=== PATIENT | female | born 1945 | race Caucasian/White ===

== ENCOUNTER → 2016-12-21 | Outpatient (CLI) | payer OTHER, MEDICARE ==
[~2016-12-21] MED LIST: AMBIEN10 MG PO; ASPIR-LOW81 MG PO; AUGMENTIN TAB875 MG PO; LOVASTATIN20 MG PO; PHENERGAN 25 MG25 M1 PO; ROBITUSSIN DM473 ML PO; TENORMIN 25 MG25 MG PO; TYLENOL 325MG325 MG PO
[2016-12-21 09:01] LABS: HEMOGLOBIN 13.5 gm/dl (12.3-15.3); RED BLOOD COUNT 4.73 M/UL (4.00-5.10); WHITE BLOOD COUNT 4.1 K/UL (4.5-11.0)
== END ==
LOC: US 08:36
PROVIDERS: Otolaryngology
DX: E04.2 Nontoxic multinodular goiter (principal); D44.0 Neoplasm of uncertain behavior of thyroid gland
CPT/HCPCS: 10022; 36415; 76536; 85027; 85610; 85730

== ENCOUNTER → 2020-08-14 | Outpatient (CLI) | payer MEDICARE, OTHER | LOC: KOH-I 08-10 15:00 | DX: R22.41 Localized swelling, mass and lump, right lower limb (principal) | CPT/HCPCS: 76881 ==

== ENCOUNTER → 2021-02-03 | Outpatient (CLI) | payer MEDICARE | LOC: MAMO 07:58 | DX: Z12.31 Encounter for screening mammogram for malignant neoplasm of breast (principal) | CPT/HCPCS: 77063; 77067 ==

== ENCOUNTER → 2021-06-03 | Outpatient (CLI) | payer MEDICARE | LOC: LAB 10:25 | DX: M25.50 Pain in unspecified joint (principal); R76.8 Other specified abnormal immunological findings in serum; D89.89 Other specified disorders involving the immune mechanism, not elsewhere classified; D64.9 Anemia, unspecified; R53.83 Other fatigue; M25.519 Pain in unspecified shoulder; E55.9 Vitamin D deficiency, unspecified | CPT/HCPCS: 36415; 82728; 83520 ==

== ENCOUNTER → 2021-09-17 | Outpatient (CLI) | payer MEDICARE ==
[2021-09-17 11:06] LABS: HEMOGLOBIN 12.2 gm/dl (12.3-15.3); RED BLOOD COUNT 4.21 M/UL (4.00-5.10); WHITE BLOOD COUNT 4.3 K/UL (4.5-11.0)
== END ==
LOC: LAB 10:40
PROVIDERS: Nurse Practitioner Family
DX: E78.5 Hyperlipidemia, unspecified (principal); I10 Essential (primary) hypertension; R53.82 Chronic fatigue, unspecified
CPT/HCPCS: 36415; 80053; 80061; 81001; 84436; 84443; 84480; 85025